=== PATIENT | male | born 1945 | race Caucasian/White ===

== ENCOUNTER 2019-02-04 09:34 | Emergency (ER) | payer BC, OTHER ==
[~2019-02-04] VITALS: Ht 172.7 cm; Wt 63.0 kg
[2019-02-04] MEDS ORDERED: albuterol 2.5 MG/3 ML nebule CONTNEB PRN (09:55)
[2019-02-04] MEDS ORDERED: methylPREDNISolone sod succ 125mg/2ml vial IV ONE (09:55)
[2019-02-04] MEDS ORDERED: magnesium 2GM in 50ml NS 50 ML IV ONE (09:55)
[2019-02-04] MEDS ORDERED: ipratropium 0.5 MG/2.5ML nebule IH ONE (09:55)
[2019-02-04 10:12] LABS: BASOPHILS # (AUTO) 0.1 X10'3 (0-0.2); BASOPHILS % (AUTO) 0.6 % (0-1); EOSINOPHILS # (AUTO) 0.2 X10'3 (0-0.9); EOSINOPHILS % (AUTO) 0.8 % (0-6); HEMATOCRIT 45.2 % (42.0-52.0); LYMPHOCYTES # (AUTO) 1.3 X10'3 (1.1-4.8); LYMPHOCYTES % (AUTO) 7.3 % (21-51); MEAN CORPUSCULAR HEMOGLOBIN 29.9 PG (27.0-31.0); MEAN CORPUSCULAR HGB CONC 33.2 g/dL (33.0-36.5); MONOCYTES # (AUTO) 1.7 X10'3 (0-0.9); MONOCYTES % (AUTO) 9.4 % (2-12); NEUTROPHILS # (AUTO) 14.8 X10'3 (1.8-7.7); NEUTROPHILS % (AUTO) 81.9 % (42-75); PLATELET COUNT 233 X10'3 (140-440); RED BLOOD COUNT 5.03 X10'6 (4.70-6.10); RED CELL DISTRIBUTION WIDTH 13.5 % (11.5-14.5)
[2019-02-04 10:42] LABS: ALANINE AMINOTRANSFERASE 25 U/L (12-78); ALBUMIN 3.6 G/DL (3.4-5.0); ALKALINE PHOSPHATASE 122 IU/L (46-116); ANION GAP 7 (8-16); ASPARTATE AMINO TRANSFERASE 18 U/L (10-37); BILIRUBIN,TOTAL 0.7 MG/DL (0.1-1.0); BLOOD UREA NITROGEN 21 MG/DL (7-18); BUN/CREATININE RATIO 18.9 (5.4-32.0); CHLORIDE 102 MMOL/L (99-107); CREATININE 1.11 MG/DL (0.60-1.10); GLUCOSE 130 MG/DL (70-104); POTASSIUM 4.4 MMOL/L (3.5-5.1); SODIUM 136 MMOL/L (135-145); TOTAL CARBON DIOXIDE 27.1 MMOL/L (24-32); TOTAL PROTEIN 7.1 G/DL (6.4-8.2); eGFR 65 ML/MIN
[2019-02-04 10:44] LABS: MAGNESIUM 1.8 MG/DL (1.5-2.4)
[2019-02-04] MEDS ORDERED: azithromycin 250mg tablet PO ONE (11:35)
[2019-02-04] MEDS ORDERED: PRED20TA PO (11:35)
[2019-02-04] MEDS ORDERED: AZIT-63 PO (11:35)
[2019-02-04 12:06] VITALS: BP 108/59
== END 2019-02-04 12:09 | disposition home or self-care (01) ==
LOC: ER 09:35
DX: J44.1 Chronic obstructive pulmonary disease with (acute) exacerbation (principal); Z79.899 Other long term (current) drug therapy
CPT/HCPCS: 36415; 71045; 80053; 83605; 83735; 83880; 84145; 84484; 85025; 85610; 87040; 93005; 94644; 94760; 96365; 96375; 99285; J2930; J3475

== ENCOUNTER 2019-03-12 09:41 | Emergency (ER) | payer MEDICARE, BC, OTHER ==
[~2019-03-12] VITALS: Ht 172.7 cm; Wt 61.8 kg
[2019-03-12] MEDS ORDERED: methylPREDNISolone sod succ 125mg/2ml vial IV ONE (09:55)
[2019-03-12] MEDS ORDERED: ipratropium/albuterol 3ml nebule NEB ONE ×2 (09:55→11:10)
[2019-03-12] MEDS ORDERED: normal saline 1000ML IV soln IVB ONE (09:55)
[2019-03-12 10:14] LABS: BASOPHILS # (AUTO) 0.1 X10'3 (0-0.2); BASOPHILS % (AUTO) 0.9 % (0-1); EOSINOPHILS # (AUTO) 0.4 X10'3 (0-0.9); EOSINOPHILS % (AUTO) 4.4 % (0-6); HEMATOCRIT 47.1 % (42.0-52.0); HEMOGLOBIN 15.5 g/dl (14.0-17.9); LYMPHOCYTES # (AUTO) 1.9 X10'3 (1.1-4.8); LYMPHOCYTES % (AUTO) 20.5 % (21-51); MEAN CORPUSCULAR HEMOGLOBIN 29.6 PG (27.0-31.0); MEAN CORPUSCULAR VOLUME 89.8 FL (78-98); MEAN PLATELET VOLUME 6.8 FL (7.4-10.4); MONOCYTES # (AUTO) 0.9 X10'3 (0-0.9); MONOCYTES % (AUTO) 9.8 % (2-12); NEUTROPHILS # (AUTO) 5.8 X10'3 (1.8-7.7); NEUTROPHILS % (AUTO) 64.4 % (42-75); PLATELET COUNT 270 X10'3 (140-440); RED BLOOD COUNT 5.25 X10'6 (4.70-6.10); RED CELL DISTRIBUTION WIDTH 13.7 % (11.5-14.5); WHITE BLOOD COUNT 9.1 X10'3 (4.5-11.0)
--- NOTE | 2019-03-12 10:28 | NUR ---
reported off to Mike MARTÍNEZ, taking over
[2019-03-12 10:33] LABS: PARTIAL THROMBOPLASTIN TIME 27 SECONDS (22-32)
[2019-03-12 10:44] LABS: ALANINE AMINOTRANSFERASE 30 U/L (12-78); ALBUMIN/GLOBULIN RATIO 1.2 (1.1-1.5); ALKALINE PHOSPHATASE 139 IU/L (46-116); ANION GAP 8 (8-16); ASPARTATE AMINO TRANSFERASE 22 U/L (10-37); BILIRUBIN,TOTAL 0.5 MG/DL (0.1-1.0); BLOOD UREA NITROGEN 15 MG/DL (7-18); BUN/CREATININE RATIO 15.2 (5.4-32.0); CHLORIDE 105 MMOL/L (99-107); CREATININE 0.99 MG/DL (0.60-1.10); GLUCOSE 109 MG/DL (70-104); SODIUM 140 MMOL/L (135-145); TOTAL CARBON DIOXIDE 26.7 MMOL/L (24-32); TOTAL PROTEIN 7.4 G/DL (6.4-8.2); eGFR 75 ML/MIN
[2019-03-12 10:47] LABS: POTASSIUM 4.4 MMOL/L (3.5-5.1)
[2019-03-12] MEDS ORDERED: PRED10TA PO (11:11)
[2019-03-12 11:31] VITALS: BP 142/92
== END 2019-03-12 11:47 | disposition home or self-care (01) ==
LOC: ER 09:41
DX: J44.1 Chronic obstructive pulmonary disease with (acute) exacerbation (principal); Z87.891 Personal history of nicotine dependence; Z79.899 Other long term (current) drug therapy
CPT/HCPCS: 36415; 71045; 80053; 84484; 85025; 85610; 85730; 93005; 94640; 94760; 96374; 99284; J2930; J7040

== ENCOUNTER 2019-04-13 10:14 | Inpatient (IN) | payer BC, MEDICARE, OTHER ==
[~2019-04-13] VITALS: Ht 172.7 cm; Wt 63.6 kg
[~2019-04-13 10:14] MED LIST: PRED10TA PO
[2019-04-13] MEDS ORDERED: methylPREDNISolone sod succ 125mg/2ml vial IV ONE (10:30)
[2019-04-13] MEDS ORDERED: albuterol 2.5 MG/3 ML nebule CONTNEB PRN (10:30)
[2019-04-13 11:31] LABS: BASOPHILS # (AUTO) 0.1 X10'3 (0-0.2); BASOPHILS % (AUTO) 0.8 % (0-1); EOSINOPHILS # (AUTO) 0.3 X10'3 (0-0.9); EOSINOPHILS % (AUTO) 3.6 % (0-6); HEMATOCRIT 45.5 % (42.0-52.0); HEMOGLOBIN 15.2 g/dl (14.0-17.9); LYMPHOCYTES # (AUTO) 1.4 X10'3 (1.1-4.8); LYMPHOCYTES % (AUTO) 15.5 % (21-51); MEAN CORPUSCULAR HGB CONC 33.3 g/dL (33.0-36.5); MEAN CORPUSCULAR VOLUME 90.1 FL (78-98); MEAN PLATELET VOLUME 6.9 FL (7.4-10.4); MONOCYTES % (AUTO) 10.8 % (2-12); NEUTROPHILS # (AUTO) 6.4 X10'3 (1.8-7.7); NEUTROPHILS % (AUTO) 69.3 % (42-75); PLATELET COUNT 295 X10'3 (140-440); RED BLOOD COUNT 5.05 X10'6 (4.70-6.10); WHITE BLOOD COUNT 9.2 X10'3 (4.5-11.0)
[2019-04-13] MEDS ORDERED: acetaminophen 325mg tablet PO ONE (11:35)
[2019-04-13 11:44] LABS: ALANINE AMINOTRANSFERASE 23 U/L (12-78); ALBUMIN 3.7 G/DL (3.4-5.0); ALBUMIN/GLOBULIN RATIO 1.2 (1.1-1.5); ALKALINE PHOSPHATASE 129 IU/L (46-116); ANION GAP 10 (8-16); ASPARTATE AMINO TRANSFERASE 14 U/L (10-37); BILIRUBIN,TOTAL 0.8 MG/DL (0.1-1.0); BLOOD UREA NITROGEN 22 MG/DL (7-18); CALCIUM 9.1 MG/DL (8.5-10.1); CHLORIDE 103 MMOL/L (99-107); CREATININE 1.05 MG/DL (0.60-1.10); GLUCOSE 116 MG/DL (70-104); POTASSIUM 4.5 MMOL/L (3.5-5.1); SODIUM 138 MMOL/L (135-145); TOTAL CARBON DIOXIDE 25.3 MMOL/L (24-32); TOTAL PROTEIN 6.8 G/DL (6.4-8.2); eGFR 70 ML/MIN
[2019-04-13 11:48] LABS: D-DIMER 1.94 MG/L FEU (0-0.50); PARTIAL THROMBOPLASTIN TIME 28 SECONDS (22-32)
--- NOTE | 2019-04-13 12:06 | NUR ---
pt is established pt of Dr. Alfred, has appt for further work up and sleep study on 04/15. pt reports has been using spouses nebulizers and O2. has been on her O2 continuous for approx 3 weeks. continuous neb given in ER with minimal relief. discussed breathing techniques pursed lip breathing and tripoding.
[2019-04-13] MEDS ORDERED: iohexol 350MG/ML 100ml bottle IV ONE (12:39)
[2019-04-13] MEDS ORDERED: LISI2.5T2 PO (13:14)
[2019-04-13] MEDS ORDERED: TIOT18CA3 IH (13:14)
[2019-04-13] MEDS ORDERED: ALBU18HF2 INH (13:14)
[2019-04-13] MEDS ORDERED: OMEP20CA11 PO (13:14)
[2019-04-13] MEDS ORDERED: TRAZ150T78 PO (13:14)
[2019-04-13] MEDS ORDERED: ATOR20TA66 PO (13:14)
[2019-04-13] MEDS ORDERED: BUDE10.2 INH (13:14)
[2019-04-13] MEDS ORDERED: HYDROcodone/acetaminophen 10/325mg tab PO PRN (14:00)
[2019-04-13] MEDS ORDERED: HYDROcodone/acetaminophen 5mg/325mg tablet PO PRN (14:00)
[2019-04-13] MEDS ORDERED: magnesium 4gm in 100ml NS 100 ML IV PRN (14:00)
[2019-04-13] MEDS: K and/or MAG REPLACEMENT MC SCH (14:00)
[2019-04-13] MEDS ORDERED: diphenhydrAMINE 25mg capsule PO PRN (14:00)
[2019-04-13] MEDS ORDERED: potassium CL 10mEq/100ml bag 100 ML IV PRN ×2 (14:00)
[2019-04-13] MEDS ORDERED: acetaminophen 325mg tablet PO PRN (14:00)
[2019-04-13] MEDS ORDERED: magnesium hydroxide 30ml (MOM) UD suspension PO PRN (14:00)
[2019-04-13] MEDS ORDERED: magnesium 2GM in 50ml NS 50 ML IV PRN (14:00)
[2019-04-13] MEDS ORDERED: methylPREDNISolone sod succ 125mg/2ml vial IV SCH (14:00)
[2019-04-13] MEDS ORDERED: ondansetron/PF 4mg/2ml inj IV PRN (14:00)
[2019-04-13] MEDS ORDERED: magnesium Cl slow-release 64mg tablet PO PRN (14:00)
[2019-04-13] MEDS ORDERED: potassium Cl 20 mEq SR tablet PO PRN ×2 (14:00)
[2019-04-13] MEDS ORDERED: morphine 2 MG/ML inj. syringe IV PRN ×2 (14:00)
[2019-04-13 14:46] LABS: HEMOGLOBIN A1C 5.8 % (4.5-6.2)
[2019-04-13] MEDS: normal saline 1000ml 1,000 ML IV SCH (14:48)
[2019-04-13] MEDS: levoFLOXACIN-Levaquin 750MG/D5 150 ML IV SCH (14:48)
[2019-04-13] MEDS: ipratropium/albuterol 3ml nebule NEB SCH ×3 (15:00→22:57)
[2019-04-13] MEDS ORDERED: diltiazem 5mg/ml 5ml inj. IV ONE (15:00)
--- NOTE | 2019-04-13 16:00 | NUR ---
Received report from Joy MARTÍNEZ. Able to ask question, and all questions answered. Patient will be admitted to room 3013A.
--- NOTE | 2019-04-13 16:15 | NUR ---
Patient admitted to room 3013A, brought up by REGULATORY SPECIALIST via sara and patient was able to scoot himself over to room bed. Patient oriented to room, and stable at this time. Tele monitor applied and 2 RN skin assessment done. Patient currently has no complaints
[2019-04-13] MEDS: methylPREDNISolone sod succ 125mg/2ml vial IV SCH ×2 (17:07→22:00)
[2019-04-13 17:28] LABS: CLARITY,URINE CLEAR (Clear); COLOR,URINE YELLOW (Yellow); GLUCOSE, URINE NEGATIVE (Neg); KETONES,URINE TRACE mg/dl (Neg); LEUKOCYTE ESTERASE ,URINE NEGATIVE (Neg); NITRITES, URINE NEGATIVE (Neg); OCCULT BLOOD,URINE TRACE-LYSED (Neg); PH,URINE 6.5 (4.8-8.0); PROTEIN,URINE NEGATIVE (Neg); UROBILINOGEN,URINE 0.2 E.U/dL (0.2-1.0)
[2019-04-13 17:33] LABS: UA COLLECTION TYPE CLN CATCH MIDSTREAM
[2019-04-13 17:34] LABS: BACTERIA,URINE NONE SEEN /HPF (Neg); RBC,URINE 0-2 /HPF (0-2); SQUAMOUS EPITHELIAL CELL,UR FEW /LPF (FEW); WBC,URINE 0-4 /HPF (0-4)
[2019-04-13 18:00] VITALS: BP 123/75
--- NOTE | 2019-04-13 18:46 | NUR ---
Problems reprioritized. Patient report given, questions answered & plan of care reviewed with Zoila MARTÍNEZ.
[2019-04-13] MEDS ORDERED: temazepam 15mg capsule PO PRN (21:00)
[2019-04-13] MEDS: acetaminophen 325mg tablet PO PRN (21:01)
[2019-04-13] MEDS: heparin, porcine 5000 units/ml vial SQ SCH (21:04)
[2019-04-13 23:00] VITALS: BP 125/78
[2019-04-14] MEDS ORDERED: albuterol 2.5 MG/3 ML nebule NEB PRN
[2019-04-14] MEDS: ipratropium/albuterol 3ml nebule NEB SCH ×6 (02:42→22:54)
[2019-04-14] MEDS ORDERED: ipratropium 0.5 MG/2.5ML nebule IH SCH (03:00)
[2019-04-14] MEDS: normal saline 1000ml 1,000 ML IV SCH ×2 (03:19→17:05)
[2019-04-14] MEDS: methylPREDNISolone sod succ 125mg/2ml vial IV SCH ×4 (04:00→21:17)
[2019-04-14 06:02] LABS: ALANINE AMINOTRANSFERASE 26 U/L (12-78); ALBUMIN 3.3 G/DL (3.4-5.0); ALBUMIN/GLOBULIN RATIO 1.1 (1.1-1.5); ALKALINE PHOSPHATASE 108 IU/L (46-116); ANION GAP 8 (8-16); ASPARTATE AMINO TRANSFERASE 14 U/L (10-37); BILIRUBIN,TOTAL 0.4 MG/DL (0.1-1.0); BLOOD UREA NITROGEN 24 MG/DL (7-18); CALCIUM 8.6 MG/DL (8.5-10.1); CHLORIDE 104 MMOL/L (99-107); CHOL/HDL RATIO 2.5 (0.00-4.99); CHOLESTEROL 144 MG/DL (0-200); CREATININE 1.09 MG/DL (0.60-1.10); GLUCOSE 163 MG/DL (70-104); HDL CHOLESTEROL 58 MG/DL (35-60); LDL CHOLESTEROL 79 MG/DL (50-100); MAGNESIUM 1.9 MG/DL (1.5-2.4); PHOSPHORUS 3.2 MG/DL (2.3-4.5); SODIUM 137 MMOL/L (135-145); TOTAL CARBON DIOXIDE 25.1 MMOL/L (24-32); TOTAL PROTEIN 6.2 G/DL (6.4-8.2); TRIGLYCERIDES 36 MG/DL (20-135); eGFR 67 ML/MIN
[2019-04-14 06:09] LABS: BASOPHILS % (AUTO) 0.2 % (0-1); EOSINOPHILS % (AUTO) 0 % (0-6); HEMATOCRIT 41.4 % (42.0-52.0); HEMOGLOBIN 13.9 g/dl (14.0-17.9); LYMPHOCYTES # (AUTO) 0.5 X10'3 (1.1-4.8); LYMPHOCYTES % (AUTO) 4.6 % (21-51); MEAN CORPUSCULAR HEMOGLOBIN 30.2 PG (27.0-31.0); MEAN CORPUSCULAR HGB CONC 33.7 g/dL (33.0-36.5); MEAN CORPUSCULAR VOLUME 89.8 FL (78-98); MEAN PLATELET VOLUME 7.2 FL (7.4-10.4); MONOCYTES # (AUTO) 0.2 X10'3 (0-0.9); MONOCYTES % (AUTO) 2.1 % (2-12); NEUTROPHILS # (AUTO) 10.1 X10'3 (1.8-7.7); NEUTROPHILS % (AUTO) 93.1 % (42-75); PLATELET COUNT 260 X10'3 (140-440); RED BLOOD COUNT 4.61 X10'6 (4.70-6.10); RED CELL DISTRIBUTION WIDTH 13.8 % (11.5-14.5); WHITE BLOOD COUNT 10.8 X10'3 (4.5-11.0)
--- NOTE | 2019-04-14 06:17 | NUR ---
Problems reprioritized. Patient report given, questions answered & plan of care reviewed with Perfecto MARTÍNEZ.
--- NOTE | 2019-04-14 06:26 | NUR ---
Patient in room PCU 3013. I have received report from [facility] and had the opportunity to ask questions and assume patient care.
[2019-04-14 07:03] VITALS: BP 129/96
[2019-04-14] MEDS: heparin, porcine 5000 units/ml vial SQ SCH ×2 (07:57→21:17)
[2019-04-14] MEDS: lisinopril 2.5mg tablet PO SCH (07:58)
[2019-04-14] MEDS: levoFLOXACIN-Levaquin 750MG/D5 150 ML IV SCH (07:58)
[2019-04-14] MEDS: pantoprazole 40mg Tablet.DR PO SCH (07:58)
[2019-04-14] MEDS: K and/or MAG REPLACEMENT MC SCH (08:00)
[2019-04-14] MEDS: budesonide 0.5mg/2ml UD nebule IH SCH ×2 (09:00→22:54)
[2019-04-14] MEDS: acetaminophen 325mg tablet PO PRN ×2 (09:22→21:15)
[2019-04-14] MEDS: diltiazem CD 120mg capsule (once-daily) PO SCH (09:46)
[2019-04-14 11:00] VITALS: BP 137/88
[2019-04-14 15:00] VITALS: BP 137/74
[2019-04-14] MEDS: mag hydrox/Alum hydrox/simeth 30ml oral suspension PO PRN ×2 (17:51→21:52)
--- NOTE | 2019-04-14 17:58 | NUR ---
I have reviewed and agree with all interventions, assessments performed and documented by Alida MARTÍNEZ.
[2019-04-14 18:00] VITALS: BP 121/82
--- NOTE | 2019-04-14 18:28 | NUR ---
Problems reprioritized. Patient report given, questions answered & plan of care reviewed with Zoila MARTÍNEZ.
--- NOTE | 2019-04-14 18:34 | NUR ---
Patient in room PCU 3013. I have received report from Rima MARTÍNEZ and had the opportunity to ask questions and assume patient care. Addendum: 04/14/19 at 1834 by Zoila Mckeon RN Cami MARTÍNEZ
[2019-04-14] MEDS: atorvastatin 20mg tablet PO SCH (21:15)
[2019-04-14] MEDS: traZODone 150mg tablet PO SCH (21:16)
[2019-04-14 23:00] VITALS: BP 128/69
--- NOTE | 2019-04-14 23:47 | NUR ---
pt c/o heartburn, mallox was given
[2019-04-15] VITALS (8 sets, daily range): BP systolic 116–150; BP diastolic 72–97
[2019-04-15] MEDS: ipratropium/albuterol 3ml nebule NEB SCH ×6 (02:45→23:29)
[2019-04-15] MEDS: methylPREDNISolone sod succ 125mg/2ml vial IV SCH ×4 (03:25→21:24)
[2019-04-15 04:46] LABS: BASOPHILS % (AUTO) 0.1 % (0-1); EOSINOPHILS % (AUTO) 0 % (0-6); HEMATOCRIT 38.7 % (42.0-52.0); HEMOGLOBIN 13.1 g/dl (14.0-17.9); LYMPHOCYTES # (AUTO) 0.4 X10'3 (1.1-4.8); LYMPHOCYTES % (AUTO) 2.4 % (21-51); MEAN CORPUSCULAR HGB CONC 33.8 g/dL (33.0-36.5); MEAN CORPUSCULAR VOLUME 88.8 FL (78-98); MEAN PLATELET VOLUME 7.1 FL (7.4-10.4); MONOCYTES # (AUTO) 0.7 X10'3 (0-0.9); NEUTROPHILS # (AUTO) 16.4 X10'3 (1.8-7.7); NEUTROPHILS % (AUTO) 93.5 % (42-75); PLATELET COUNT 259 X10'3 (140-440); RED BLOOD COUNT 4.36 X10'6 (4.70-6.10); RED CELL DISTRIBUTION WIDTH 13.7 % (11.5-14.5); WHITE BLOOD COUNT 17.6 X10'3 (4.5-11.0)
[2019-04-15 04:57] LABS: ALANINE AMINOTRANSFERASE 24 U/L (12-78); ALBUMIN 3.1 G/DL (3.4-5.0); ALBUMIN/GLOBULIN RATIO 1.2 (1.1-1.5); ALKALINE PHOSPHATASE 91 IU/L (46-116); ANION GAP 4 (8-16); ASPARTATE AMINO TRANSFERASE 12 U/L (10-37); BILIRUBIN,TOTAL 0.3 MG/DL (0.1-1.0); BLOOD UREA NITROGEN 25 MG/DL (7-18); BUN/CREATININE RATIO 25.3 (5.4-32.0); CALCIUM 8.3 MG/DL (8.5-10.1); CHLORIDE 108 MMOL/L (99-107); CREATININE 0.99 MG/DL (0.60-1.10); GLUCOSE 184 MG/DL (70-104); MAGNESIUM 2.1 MG/DL (1.5-2.4); POTASSIUM 4.1 MMOL/L (3.5-5.1); SODIUM 140 MMOL/L (135-145); TOTAL CARBON DIOXIDE 28.2 MMOL/L (24-32); TOTAL PROTEIN 5.6 G/DL (6.4-8.2); eGFR 75 ML/MIN
--- NOTE | 2019-04-15 06:26 | NUR ---
Patient in room PCU 3013. I have received report from Zoila MARTÍNEZ and had the opportunity to ask questions and assume patient care.
--- NOTE | 2019-04-15 06:26 | NUR ---
Problems reprioritized. Patient report given, questions answered & plan of care reviewed with BERENICE MARTÍNEZ.
[2019-04-15] MEDS: levoFLOXACIN-Levaquin 750MG/D5 150 ML IV SCH (08:28)
[2019-04-15] MEDS: pantoprazole 40mg Tablet.DR PO SCH (08:30)
[2019-04-15] MEDS: lisinopril 2.5mg tablet PO SCH (08:31)
[2019-04-15] MEDS: heparin, porcine 5000 units/ml vial SQ SCH ×2 (08:32→21:23)
[2019-04-15] MEDS: diltiazem CD 120mg capsule (once-daily) PO SCH (08:33)
[2019-04-15] MEDS: normal saline 1000ml 1,000 ML IV SCH (08:33)
[2019-04-15] MEDS: K and/or MAG REPLACEMENT MC SCH (09:46)
[2019-04-15] MEDS: budesonide 0.5mg/2ml UD nebule IH SCH ×2 (10:50→19:17)
--- NOTE | 2019-04-15 15:35 | NUR ---
PAGER ID: [phone] MESSAGE: PtSpencer Castillo [id number] May we have orders for a stool softner? Susan MARTÍNEZstatistician [phone]
[2019-04-15] MEDS ORDERED: morphine 2 MG/ML inj. syringe IV PRN (18:05)
[2019-04-15] MEDS ORDERED: LORazepam 2 mg/ml vial IM ONE (18:05)
[2019-04-15] MEDS ORDERED: nitroGLYCERIN 0.4mg SUBLingual tab SL PRN (18:05)
[2019-04-15] MEDS ORDERED: LORazepam 2 mg/ml vial IV PRN (18:05)
--- NOTE | 2019-04-15 18:15 | NUR ---
Chest Pain 1755 Severe Chest Pain S/S. EKG done O2 Support and Rapid response called. Resolved partially in 4 approx 4 min. Per Pt. first time with this level of discomfort, Clutching Chest with 10/10 sharp chest pain. Lungs are diminished. No tachycardia, 160 SBP, resolved to SBP of 120 with pain relief. Jarred KINSGLEY ordered Medications, careful nursing surveillance. Jarred KINGSLEY to bedside to physically assess.
[2019-04-15] MEDS: acetaminophen 325mg tablet PO PRN (19:16)
[2019-04-15] MEDS: traZODone 150mg tablet PO SCH (21:22)
[2019-04-15] MEDS: atorvastatin 20mg tablet PO SCH (21:22)
[2019-04-16] VITALS (14 sets, daily range): BP systolic 110–183; BP diastolic 66–98
[2019-04-16] MEDS: normal saline 1000ml 1,000 ML IV SCH (00:48)
[2019-04-16] MEDS: ipratropium/albuterol 3ml nebule NEB SCH ×6 (03:26→22:53)
[2019-04-16] MEDS: methylPREDNISolone sod succ 125mg/2ml vial IV SCH ×2 (04:18→11:47)
[2019-04-16 04:53] LABS: BASOPHILS % (AUTO) 0 % (0-1); EOSINOPHILS % (AUTO) 0 % (0-6); HEMATOCRIT 37.8 % (42.0-52.0); HEMOGLOBIN 12.7 g/dl (14.0-17.9); LYMPHOCYTES # (AUTO) 0.3 X10'3 (1.1-4.8); MEAN CORPUSCULAR HEMOGLOBIN 30.1 PG (27.0-31.0); MEAN CORPUSCULAR HGB CONC 33.5 g/dL (33.0-36.5); MEAN CORPUSCULAR VOLUME 89.8 FL (78-98); MEAN PLATELET VOLUME 6.8 FL (7.4-10.4); MONOCYTES # (AUTO) 0.8 X10'3 (0-0.9); MONOCYTES % (AUTO) 4.9 % (2-12); NEUTROPHILS # (AUTO) 15.7 X10'3 (1.8-7.7); NEUTROPHILS % (AUTO) 93.1 % (42-75); PLATELET COUNT 236 X10'3 (140-440); RED BLOOD COUNT 4.21 X10'6 (4.70-6.10); RED CELL DISTRIBUTION WIDTH 14.3 % (11.5-14.5); WHITE BLOOD COUNT 16.9 X10'3 (4.5-11.0)
[2019-04-16 05:31] LABS: ALANINE AMINOTRANSFERASE 26 U/L (12-78); ALBUMIN 2.9 G/DL (3.4-5.0); ALBUMIN/GLOBULIN RATIO 1.2 (1.1-1.5); ALKALINE PHOSPHATASE 87 IU/L (46-116); ANION GAP 6 (8-16); ASPARTATE AMINO TRANSFERASE 16 U/L (10-37); BILIRUBIN,TOTAL 0.3 MG/DL (0.1-1.0); BLOOD UREA NITROGEN 26 MG/DL (7-18); BUN/CREATININE RATIO 27.4 (5.4-32.0); CALCIUM 8.1 MG/DL (8.5-10.1); CHLORIDE 109 MMOL/L (99-107); CREATININE 0.95 MG/DL (0.60-1.10); GLUCOSE 161 MG/DL (70-104); MAGNESIUM 2.1 MG/DL (1.5-2.4); PHOSPHORUS 2.8 MG/DL (2.3-4.5); POTASSIUM 4.1 MMOL/L (3.5-5.1); SODIUM 142 MMOL/L (135-145); TOTAL CARBON DIOXIDE 27.5 MMOL/L (24-32); TOTAL PROTEIN 5.3 G/DL (6.4-8.2); eGFR 78 ML/MIN
[2019-04-16] MEDS: K and/or MAG REPLACEMENT MC SCH (06:55)
[2019-04-16] MEDS: budesonide 0.5mg/2ml UD nebule IH SCH ×2 (07:20→19:07)
[2019-04-16] MEDS: pantoprazole 40mg Tablet.DR PO SCH (08:00)
[2019-04-16] MEDS: diltiazem CD 120mg capsule (once-daily) PO SCH (09:33)
[2019-04-16] MEDS: lisinopril 2.5mg tablet PO SCH (09:34)
[2019-04-16] MEDS: heparin, porcine 5000 units/ml vial SQ SCH ×2 (09:35→20:39)
[2019-04-16] MEDS: levoFLOXACIN 750MG TABLET PO SCH (11:47)
[2019-04-16] MEDS: acetaminophen 325mg tablet PO PRN (16:23)
--- NOTE | 2019-04-16 17:55 | NUR ---
Oxygen walk: Fail to walk O2 on 2L with exertion 85%. Pt. is not able to walk and test.
--- NOTE | 2019-04-16 18:46 | NUR ---
Problems reprioritized. Patient report given, questions answered & plan of care reviewed with Toni MARTÍNEZ.
--- NOTE | 2019-04-16 18:47 | NUR ---
Patient in room PCU 3013. I have received report from MAURICIO Davis and had the opportunity to ask questions and assume patient care.
--- NOTE | 2019-04-16 19:52 | NUR ---
Pt had 40 second run of SVT with HR of 200. O2 went down to 86. MD notified, no actions at this time.
[2019-04-16] MEDS ORDERED: diltiazem 5mg/ml 5ml inj. IV ONE (20:05)
--- NOTE | 2019-04-16 20:05 | NUR ---
Patient had another 30 second run of SVT, HR 250's, called, came up to assess pt. Ordered a cardizem drip.
[2019-04-16] MEDS: diltiazem-NS 100mg/100ml 100 ML IV SCH (20:27)
--- NOTE | 2019-04-16 20:35 | NUR ---
Problems reprioritized. Patient report given, questions answered & plan of care reviewed with MAURICIO Tobias.
[2019-04-16] MEDS: lactobacillus rhamnosus 10,000 MMU CELLS/CAPSULE PO SCH (20:39)
[2019-04-16] MEDS: traZODone 150mg tablet PO SCH (21:13)
[2019-04-16] MEDS: atorvastatin 20mg tablet PO SCH (21:13)
[2019-04-17] VITALS (8 sets, daily range): BP systolic 124–153; BP diastolic 66–97
[2019-04-17] MEDS: ipratropium/albuterol 3ml nebule NEB SCH ×2 (02:54→07:00)
[2019-04-17 05:25] LABS: BASOPHILS % (AUTO) 0 % (0-1); EOSINOPHILS % (AUTO) 0 % (0-6); HEMATOCRIT 37.9 % (42.0-52.0); HEMOGLOBIN 12.8 g/dl (14.0-17.9); LYMPHOCYTES # (AUTO) 0.4 X10'3 (1.1-4.8); LYMPHOCYTES % (AUTO) 2.4 % (21-51); MEAN CORPUSCULAR HEMOGLOBIN 30.1 PG (27.0-31.0); MEAN CORPUSCULAR HGB CONC 33.9 g/dL (33.0-36.5); MEAN CORPUSCULAR VOLUME 88.9 FL (78-98); MEAN PLATELET VOLUME 6.8 FL (7.4-10.4); MONOCYTES # (AUTO) 1.1 X10'3 (0-0.9); MONOCYTES % (AUTO) 7.5 % (2-12); NEUTROPHILS # (AUTO) 13.7 X10'3 (1.8-7.7); NEUTROPHILS % (AUTO) 90.1 % (42-75); PLATELET COUNT 218 X10'3 (140-440); RED BLOOD COUNT 4.26 X10'6 (4.70-6.10); RED CELL DISTRIBUTION WIDTH 13.9 % (11.5-14.5); WHITE BLOOD COUNT 15.2 X10'3 (4.5-11.0)
[2019-04-17 05:35] LABS: ALANINE AMINOTRANSFERASE 36 U/L (12-78); ALBUMIN 2.9 G/DL (3.4-5.0); ALBUMIN/GLOBULIN RATIO 1.2 (1.1-1.5); ALKALINE PHOSPHATASE 84 IU/L (46-116); ANION GAP 4 (8-16); ASPARTATE AMINO TRANSFERASE 14 U/L (10-37); BILIRUBIN,TOTAL 0.4 MG/DL (0.1-1.0); BLOOD UREA NITROGEN 29 MG/DL (7-18); BUN/CREATININE RATIO 31.2 (5.4-32.0); CALCIUM 8.2 MG/DL (8.5-10.1); CHLORIDE 108 MMOL/L (99-107); CREATININE 0.93 MG/DL (0.60-1.10); GLUCOSE 146 MG/DL (70-104); MAGNESIUM 2.1 MG/DL (1.5-2.4); PHOSPHORUS 3.2 MG/DL (2.3-4.5); POTASSIUM 3.9 MMOL/L (3.5-5.1); SODIUM 141 MMOL/L (135-145); TOTAL CARBON DIOXIDE 29.3 MMOL/L (24-32); TOTAL PROTEIN 5.3 G/DL (6.4-8.2); eGFR 80 ML/MIN
[2019-04-17] MEDS: budesonide 0.5mg/2ml UD nebule IH SCH (07:17)
[2019-04-17] MEDS: K and/or MAG REPLACEMENT MC SCH (07:42)
[2019-04-17] MEDS: heparin, porcine 5000 units/ml vial SQ SCH (07:43)
[2019-04-17] MEDS: pantoprazole 40mg Tablet.DR PO SCH (07:44)
[2019-04-17] MEDS: lisinopril 2.5mg tablet PO SCH (07:44)
[2019-04-17] MEDS: lactobacillus rhamnosus 10,000 MMU CELLS/CAPSULE PO SCH (07:44)
[2019-04-17] MEDS: diltiazem CD 120mg capsule (once-daily) PO SCH (07:56)
[2019-04-17] MEDS ORDERED: predniSONE 20 mg tablet PO SCH (08:00)
[2019-04-17] MEDS: ipratropium 0.5 MG/2.5ML nebule NEB SCH ×3 (08:02→14:41)
--- NOTE | 2019-04-17 08:04 | NUR ---
Received order from Dr Andrews to give PO cardizem now and stop cardizem infusion 1 hour after as well as stop albuterol txs due to episodes of Vtach,change to ipatroptium only. In pt's room, pt has O2@ removed, visibly short of breath, O2 saturation decreased to 84%. Placed O2 via NC back on patient and saturation returned to 92-94% on 3.5L.
[2019-04-17] MEDS: levoFLOXACIN 750MG TABLET PO SCH (11:16)
--- NOTE | 2019-04-17 11:29 | NUR ---
O2 Sat at rest on room air:_88__% If below 89%: Recovery O2 Sat at rest on _2__LPM:___94%:___% via nasal cannula (mask/nasal cannula, etc..) No further documentation is necessary. If O2 Sat did not drop below 89% on room air,ambulate patient on room air. O2 Sat while ambulating on room air:___% Recovery O2 Sat while ambulating on ___LPM:___% No further documentation is necessary. If patient does not drop below 89% while ambulating, he/she does not qualify for home O2.
--- NOTE | 2019-04-17 11:44 | NUR ---
patient walked 200 ft with PT and HR went to 108 at the highest, discharge orders received just waiting on home 02 to be delivered
--- NOTE | 2019-04-17 13:32 | NUR ---
PAGER ID: [phone] MESSAGE: need the medications addressed in order to discharge Evgeny Castillo in , walked with PT and HR in good control highest was 108
[2019-04-17] MEDS ORDERED: CARCD120C PO (13:43)
[2019-04-17] MEDS ORDERED: LEVO750T46 PO (13:43)
[2019-04-17] MEDS ORDERED: PRED10TA23 PO (13:43)
--- NOTE | 2019-04-17 13:54 | NUR ---
updated juliana on patient status and that patient walked with PT 200 feet and HR went as high as 108, patient was asymptomatic. Waiting for Juliana to finish discharge orders addressing medications and for home o2 to be delivered before patient can go home
--- NOTE | 2019-04-17 14:29 | NUR ---
Pt prescriptions called in to [facility] pharmacy in [place],
[2019-04-17] MEDS: diltiazem-NS 100mg/100ml 100 ML IV SCH (15:40)
== END 2019-04-17 17:30 | disposition home or self-care (01) | DRG 189 ==
LOC: ER 10:14 → PCU 3S 16:11
PROVIDERS: ADMIT Family Medicine; ATTEND Hospitalist
PROC: B32T1ZZ Computerized Tomography (CT Scan) of Left Pulmonary Artery using Low Osmolar Contrast (ICD-10-PCS; principal; 2019-04-13)
PROC: B3201ZZ Computerized Tomography (CT Scan) of Thoracic Aorta using Low Osmolar Contrast (ICD-10-PCS; 2019-04-13)
PROC: B32S1ZZ Computerized Tomography (CT Scan) of Right Pulmonary Artery using Low Osmolar Contrast (ICD-10-PCS; 2019-04-13)
DX: J96.00 Acute respiratory failure, unspecified whether with hypoxia or hypercapnia (principal); J44.1 Chronic obstructive pulmonary disease with (acute) exacerbation; J44.0 Chronic obstructive pulmonary disease with (acute) lower respiratory infection; E78.00 Pure hypercholesterolemia, unspecified; E78.5 Hyperlipidemia, unspecified; F32.9 Major depressive disorder, single episode, unspecified; F41.9 Anxiety disorder, unspecified; I10 Essential (primary) hypertension; J20.9 Acute bronchitis, unspecified; K21.9 Gastro-esophageal reflux disease without esophagitis; Z79.899 Other long term (current) drug therapy; Z82.3 Family history of stroke; Z87.891 Personal history of nicotine dependence; F41.0 Panic disorder [episodic paroxysmal anxiety]; Z99.81 Dependence on supplemental oxygen
CPT/HCPCS: 36415; 71045; 71275; 80053; 80061; 81001; 83036; 83605; 83735; 83880; 84100; 84484; 85025; 85379; 85610; 85730; 87040; 87070; 87081; 93005; 93306; 94640; 94667; 94668; 94760; 96374; 96375; 97116; 97161; 97530; 99285; G0378; J1644; J1956; J2060; J2930; J3490; J7030; J7512; J7626; Q9967

== ENCOUNTER 2019-05-24 09:02 | Inpatient (IN) | payer BC, MEDICARE, OTHER ==
[~2019-05-24] VITALS: Ht 172.7 cm; Wt 63.6 kg
[2019-05-24] VITALS (11 sets, daily range): BP systolic 101–125; BP diastolic 62–76
[~2019-05-24 09:02] MED LIST changes: +ALBU18HF2 INH; +ATOR20TA66 PO; +BUDE10.2 INH; +CARCD120C PO; +LEVO750T46 PO; +LISI2.5T2 PO; +OMEP20CA11 PO; -PRED10TA PO; +TIOT18CA3 IH; +TRAZ150T78 PO
[2019-05-24] MEDS ORDERED: adenosine 3mg/ml 2ml vial IV ONE (09:15)
[2019-05-24] MEDS ORDERED: normal saline 1000ML IV soln IVB ONE (09:15)
--- NOTE | 2019-05-24 09:18 | NUR ---
PER DR COKER HOLD ADENOSINE: ALEXIA IS IN A SINUS TACH
[2019-05-24] MEDS ORDERED: metoprolol tartrate 1mg/ml inj IV ONE (09:35)
[2019-05-24 09:38] LABS: BASOPHILS # (AUTO) 0.1 X10'3 (0-0.2); BASOPHILS % (AUTO) 0.7 % (0-1); EOSINOPHILS # (AUTO) 0.1 X10'3 (0-0.9); EOSINOPHILS % (AUTO) 0.4 % (0-6); HEMATOCRIT 45.2 % (42.0-52.0); HEMOGLOBIN 14.9 g/dl (14.0-17.9); LYMPHOCYTES # (AUTO) 3.1 X10'3 (1.1-4.8); LYMPHOCYTES % (AUTO) 16.9 % (21-51); MEAN CORPUSCULAR HGB CONC 32.9 g/dL (33.0-36.5); MEAN CORPUSCULAR VOLUME 88.2 FL (78-98); MEAN PLATELET VOLUME 6.6 FL (7.4-10.4); MONOCYTES % (AUTO) 10.8 % (2-12); NEUTROPHILS # (AUTO) 13.2 X10'3 (1.8-7.7); NEUTROPHILS % (AUTO) 71.2 % (42-75); PLATELET COUNT 334 X10'3 (140-440); RED BLOOD COUNT 5.13 X10'6 (4.70-6.10); RED CELL DISTRIBUTION WIDTH 14.8 % (11.5-14.5); WHITE BLOOD COUNT 18.5 X10'3 (4.5-11.0)
--- NOTE | 2019-05-24 09:49 | NUR ---
[facility]IENT [facility] AL[facility]
[2019-05-24 09:52] LABS: ALANINE AMINOTRANSFERASE 46 U/L (12-78); ALBUMIN 3.3 G/DL (3.4-5.0); ALBUMIN/GLOBULIN RATIO 0.9 (1.1-1.5); ALKALINE PHOSPHATASE 153 IU/L (46-116); ASPARTATE AMINO TRANSFERASE 36 U/L (10-37); BILIRUBIN,TOTAL 0.4 MG/DL (0.1-1.0); BLOOD UREA NITROGEN 26 MG/DL (7-18); BUN/CREATININE RATIO 20.8 (5.4-32.0); CALCIUM 9.7 MG/DL (8.5-10.1); CHLORIDE 104 MMOL/L (99-107); CREATININE 1.25 MG/DL (0.60-1.10); GLUCOSE 130 MG/DL (70-104); POTASSIUM 4.3 MMOL/L (3.5-5.1); TOTAL CARBON DIOXIDE 24.3 MMOL/L (24-32); TOTAL PROTEIN 6.9 G/DL (6.4-8.2); eGFR 57 ML/MIN
[2019-05-24] MEDS ORDERED: normal saline 1000ml 1,000 ML IV ONE (09:55)
[2019-05-24] MEDS ORDERED: LORazepam 2 mg/ml vial IV ONE (09:55)
[2019-05-24] MEDS ORDERED: PRED20TA PO (09:57)
--- NOTE | 2019-05-24 09:57 | NUR ---
PREDNISONE 40 MGSTARTED ON THE
[2019-05-24 10:01] LABS: ANION GAP 12 (8-16); MAGNESIUM 1.8 MG/DL (1.5-2.4); SODIUM 140 MMOL/L (135-145)
--- NOTE | 2019-05-24 10:02 | NUR ---
PATIENT TOOK 120 MG DILTIAZEM FOR 4 DAYS AFTER HIS LAST DISCHARGE
[2019-05-24] MEDS ORDERED: heparin 10,000 units/1 ML INJ IV PRN (10:05)
[2019-05-24] MEDS ORDERED: heparin 10,000 units/1 ML INJ IV ONE ×2 (10:05→10:10)
[2019-05-24] MEDS ORDERED: heparin 25,000 UNIT/250ml bag 250 ML IV SCH (10:05)
[2019-05-24] MEDS ORDERED: aspirin 325mg tablet PO ONE (10:10)
[2019-05-24 10:31] LABS: PARTIAL THROMBOPLASTIN TIME 25 SECONDS (22-32)
--- NOTE | 2019-05-24 10:47 | NUR ---
DISCUSSED WITH DR COKER: PATIENT TOOK 162 BABY ASA THIS AM; ALSO: OK TO GIVE LOPRESSOR
[2019-05-24] MEDS ORDERED: ondansetron/PF 4mg/2ml inj IV PRN ×2 (10:50→13:05)
[2019-05-24] MEDS ORDERED: mag hydrox/Alum hydrox/simeth 30ml oral suspension PO PRN ×2 (10:50→13:05)
[2019-05-24] MEDS ORDERED: aspirin 81mg tab.chew PO ONE ×2 (10:50→13:05)
[2019-05-24] MEDS ORDERED: magnesium hydroxide 30ml (MOM) UD suspension PO PRN ×2 (10:50→13:05)
[2019-05-24] MEDS ORDERED: acetaminophen 325mg tablet PO PRN ×3 (10:50→13:05)
--- NOTE | 2019-05-24 10:52 | NUR ---
PATIENT ATTEMPTING TO URINATE
[2019-05-24 11:24] LABS: CLARITY,URINE CLEAR (Clear); COLOR,URINE YELLOW (Yellow); GLUCOSE, URINE NEGATIVE (Neg); KETONES,URINE NEGATIVE (Neg); LEUKOCYTE ESTERASE ,URINE NEGATIVE (Neg); NITRITES, URINE NEGATIVE (Neg); OCCULT BLOOD,URINE MODERATE (Neg); PROTEIN,URINE TRACE mg/dl (Neg); UROBILINOGEN,URINE 0.2 E.U/dL (0.2-1.0)
[2019-05-24] MEDS ORDERED: fentaNYL/PF 50MCG/1 ML 2ML syringe IV ONE (11:25)
[2019-05-24 11:33] LABS: UA COLLECTION TYPE URINAL
[2019-05-24 11:34] LABS: BACTERIA,URINE FEW /HPF (Neg); MUCUS STRANDS FEW /LPF (Neg); SQUAMOUS EPITHELIAL CELL,UR FEW /LPF (FEW)
--- NOTE | 2019-05-24 11:41 | NUR ---
phone report to Darlene MARTÍNEZ
--- NOTE | 2019-05-24 11:42 | NUR ---
recieved phone report from lula orozco
--- NOTE | 2019-05-24 11:47 | NUR ---
JOSE RAUL BACK [facility] [phone]
--- NOTE | 2019-05-24 12:05 | NUR ---
Patient arrived on unit and was orientated to room. HR: 93. chest pain 3/10 BP: 110/76. call light given. No complaints at this time.
--- NOTE | 2019-05-24 12:16 | NUR ---
PAGER ID: [phone] MESSAGE: [id number] andie Castillo Which provider is taking on this patient? Cami [phone]
--- NOTE | 2019-05-24 12:30 | NUR ---
PAGER ID: [phone] MESSAGE: [id number] Evgeny Castillo. fyi patient is having increase chest pain since arriving. 04/11. bryant MARTÍNEZ 1735
[2019-05-24] MEDS ORDERED: albuterol 2.5 MG/3 ML nebule NEB PRN (13:00)
[2019-05-24] MEDS: normal saline 1000ml 1,000 ML IV SCH (13:01)
[2019-05-24] MEDS: K and/or MAG REPLACEMENT MC SCH (13:05)
[2019-05-24] MEDS ORDERED: diphenhydrAMINE 25mg capsule PO PRN (13:05)
[2019-05-24] MEDS ORDERED: bisacodyl 10mg suppository rectal RC PRN (13:05)
[2019-05-24] MEDS ORDERED: potassium CL 10mEq/100ml bag 100 ML IV PRN ×2 (13:05)
[2019-05-24] MEDS ORDERED: potassium Cl 20 mEq SR tablet PO PRN ×2 (13:05)
[2019-05-24] MEDS ORDERED: magnesium Cl slow-release 64mg tablet PO PRN (13:05)
[2019-05-24] MEDS ORDERED: nitroGLYCERIN-Tridil 50MG/D5W 250 ML IV SCH (13:05)
[2019-05-24] MEDS ORDERED: HYDROcodone/acetaminophen 5mg/325mg tablet PO PRN (13:05)
[2019-05-24] MEDS ORDERED: morphine 2 MG/ML inj. syringe IV PRN ×2 (13:05)
[2019-05-24] MEDS ORDERED: acetaminophen 650mg rectal suppository RC PRN (13:05)
[2019-05-24] MEDS ORDERED: magnesium 4gm in 100ml NS 100 ML IV PRN (13:05)
[2019-05-24] MEDS ORDERED: magnesium 2GM in 50ml NS 50 ML IV PRN (13:05)
[2019-05-24] MEDS ORDERED: HYDROcodone/acetaminophen 10/325mg tab PO PRN (13:05)
[2019-05-24] MEDS ORDERED: tirofiban 5mg in NS 100mL 100 ML IV SCH (13:25)
[2019-05-24] MEDS: atorvastatin 20mg tablet PO SCH (14:00)
[2019-05-24] MEDS ORDERED: metoprolol succinate 25mg (24-HOUR) SR. Tablet PO SCH (14:30)
[2019-05-24] MEDS ORDERED: LIDOcaine/PRILOcaine 5gm cream TP ONE (14:35)
[2019-05-24] MEDS ORDERED: tirofiban 12.5mg in NS 250mL 250 ML IV SCH (14:35)
[2019-05-24] MEDS ORDERED: iohexol 350 MG/ML 50ML vial IV ONE (14:43)
[2019-05-24] MEDS ORDERED: LIDOcaine 1% (10mg/ml)w/preservative injection 20ml MDV ONE (14:43)
[2019-05-24] MEDS ORDERED: nitroGLYCERIN-Tridil 50MG/D5W 250 ML IV ONE (14:43)
[2019-05-24] MEDS ORDERED: verapamil 2.5 mg/ml inj IV ONE (14:43)
[2019-05-24] MEDS ORDERED: fentaNYL/PF 50MCG/1 ML 2ML syringe ONE (14:43)
[2019-05-24] MEDS ORDERED: iohexol 350MG/ML 100ml bottle IV ONE (14:43)
[2019-05-24] MEDS ORDERED: heparin 1,000unit/ml 10ml vial 10 ML ONE (14:43)
[2019-05-24] MEDS ORDERED: midazolam 2 mg/2 ml injection ONE (14:43)
[2019-05-24] MEDS ORDERED: albuterol 2.5 MG/3 ML nebule NEB SCH (15:00)
[2019-05-24] MEDS ORDERED: ipratropium 0.5 MG/2.5ML nebule NEB SCH (15:00)
--- NOTE | 2019-05-24 16:07 | NUR ---
PAGER ID: [phone] MESSAGE: DR. SAINZ. 3017B/NAZANIN, RECENT TROP 10.21. ANA MARIA [id number]. RETURNING FROM [facility] NOW.
--- NOTE | 2019-05-24 18:22 | NUR ---
Problems reprioritized. Patient report given, questions answered & plan of care reviewed with Lore orozco.
--- NOTE | 2019-05-24 18:23 | NUR ---
Patient in room PCU 3017. I have received report from Cami MARTÍNEZ and had the opportunity to ask questions and assume patient care.
[2019-05-24] MEDS ORDERED: non-formulary drug (Budesonide/Formoterol Fumarate (Symbicort 160-4.5 Mcg Inhaler) 2 PUFFS INH SCH (20:00)
[2019-05-24] MEDS: sotalol 80mg tablet PO SCH (20:09)
[2019-05-24] MEDS: ipratropium/albuterol 3ml nebule NEB SCH (20:28)
[2019-05-24] MEDS: budesonide 0.5mg/2ml UD nebule IH SCH (20:28)
[2019-05-24] MEDS ORDERED: traZODone 150mg tablet PO SCH (21:00)
[2019-05-24] MEDS ORDERED: temazepam 15mg capsule PO PRN (21:00)
--- NOTE | 2019-05-24 21:34 | NUR ---
flu shot not yet available but if it is before DC he would like it
[2019-05-25] MEDS: normal saline 1000ml 1,000 ML IV SCH (01:07)
[2019-05-25 02:00] VITALS: BP 123/75
[2019-05-25] MEDS: ipratropium/albuterol 3ml nebule NEB SCH ×2 (02:42→07:22)
--- NOTE | 2019-05-25 04:59 | NUR ---
groin site tender to palpation this am. no signs of bleeding noted. pt has been resting through the night.
[2019-05-25 06:02] LABS: BASOPHILS # (AUTO) 0.1 X10'3 (0-0.2); BASOPHILS % (AUTO) 1.2 % (0-1); EOSINOPHILS # (AUTO) 0.2 X10'3 (0-0.9); EOSINOPHILS % (AUTO) 1.9 % (0-6); HEMATOCRIT 37.2 % (42.0-52.0); HEMOGLOBIN 12.5 g/dl (14.0-17.9); LYMPHOCYTES # (AUTO) 2.1 X10'3 (1.1-4.8); LYMPHOCYTES % (AUTO) 19.7 % (21-51); MEAN CORPUSCULAR HEMOGLOBIN 30.2 PG (27.0-31.0); MEAN CORPUSCULAR HGB CONC 33.7 g/dL (33.0-36.5); MEAN CORPUSCULAR VOLUME 89.4 FL (78-98); MEAN PLATELET VOLUME 6.9 FL (7.4-10.4); MONOCYTES # (AUTO) 1.4 X10'3 (0-0.9); NEUTROPHILS # (AUTO) 6.7 X10'3 (1.8-7.7); NEUTROPHILS % (AUTO) 64.2 % (42-75); PLATELET COUNT 271 X10'3 (140-440); RED BLOOD COUNT 4.16 X10'6 (4.70-6.10); RED CELL DISTRIBUTION WIDTH 14.8 % (11.5-14.5); WHITE BLOOD COUNT 10.4 X10'3 (4.5-11.0)
--- NOTE | 2019-05-25 06:04 | NUR ---
Problems reprioritized. Patient report given, questions answered & plan of care reviewed with Cami MARTÍNEZ.
--- NOTE | 2019-05-25 06:17 | NUR ---
Patient in room PCU 3017. I have received report from gayla MARTÍNEZ and had the opportunity to ask questions and assume patient care.
[2019-05-25 06:18] LABS: ALANINE AMINOTRANSFERASE 34 U/L (12-78); ALBUMIN 2.5 G/DL (3.4-5.0); ALBUMIN/GLOBULIN RATIO 0.9 (1.1-1.5); ALKALINE PHOSPHATASE 109 IU/L (46-116); ANION GAP 7 (8-16); ASPARTATE AMINO TRANSFERASE 26 U/L (10-37); BILIRUBIN,TOTAL 0.5 MG/DL (0.1-1.0); BLOOD UREA NITROGEN 24 MG/DL (7-18); BUN/CREATININE RATIO 23.3 (5.4-32.0); CALCIUM 8.2 MG/DL (8.5-10.1); CHLORIDE 109 MMOL/L (99-107); CHOL/HDL RATIO 3.3 (0.00-4.99); CHOLESTEROL 147 MG/DL (0-200); CREATININE 1.03 MG/DL (0.60-1.10); GLUCOSE 79 MG/DL (70-104); HDL CHOLESTEROL 44 MG/DL (35-60); LDL CHOLESTEROL 86 MG/DL (50-100); MAGNESIUM 1.7 MG/DL (1.5-2.4); PHOSPHORUS 3.7 MG/DL (2.3-4.5); POTASSIUM 4.1 MMOL/L (3.5-5.1); SODIUM 141 MMOL/L (135-145); TOTAL CARBON DIOXIDE 25.4 MMOL/L (24-32); TOTAL PROTEIN 5.2 G/DL (6.4-8.2); TRIGLYCERIDES 109 MG/DL (20-135); eGFR 71 ML/MIN
[2019-05-25 07:00] VITALS: BP 139/82
[2019-05-25] MEDS: budesonide 0.5mg/2ml UD nebule IH SCH (07:22)
[2019-05-25] MEDS: atorvastatin 20mg tablet PO SCH (07:52)
[2019-05-25] MEDS: sotalol 80mg tablet PO SCH (07:52)
[2019-05-25] MEDS ORDERED: pantoprazole 40mg Tablet.DR PO SCH (08:00)
[2019-05-25] MEDS: K and/or MAG REPLACEMENT MC SCH (08:00)
[2019-05-25] MEDS ORDERED: lisinopril 2.5mg tablet PO SCH (08:00)
[2019-05-25] MEDS ORDERED: aspirin 81mg tab.chew PO SCH (08:30)
[2019-05-25 11:00] VITALS: BP 123/81
[2019-05-25] MEDS ORDERED: ASPI-1265 PO (11:40)
[2019-05-25] MEDS ORDERED: SOTA80TA73 PO (11:40)
--- NOTE | 2019-05-25 12:30 | NUR ---
Patient discharged. IVs removed cannula intact Addendum: 05/25/19 at 1340 by Cami Atkinson RN Tele box removed and returned. Discharge instructions given to patient. new prescription called into [facility]. all belongings were gathered and taken with patient
[2019-06-19] MEDS ORDERED: ATOR-2 PO (15:44)
== END 2019-05-25 12:30 | disposition home or self-care (01) | DRG 280 ==
LOC: ER 09:03 → PCU 3S 12:16
PROVIDERS: ADMIT Family Medicine; ATTEND Family Medicine
PROC: 4A023N7 Measurement of Cardiac Sampling and Pressure, Left Heart, Percutaneous Approach (ICD-10-PCS; principal; 2019-05-24)
PROC: B2111ZZ Fluoroscopy of Multiple Coronary Arteries using Low Osmolar Contrast (ICD-10-PCS; 2019-05-24)
PROC: B2151ZZ Fluoroscopy of Left Heart using Low Osmolar Contrast (ICD-10-PCS; 2019-05-24)
PROC: B31P1ZZ Fluoroscopy of Thoraco-Abdominal Aorta using Low Osmolar Contrast (ICD-10-PCS; 2019-05-24)
DX: I21.4 Non-ST elevation (NSTEMI) myocardial infarction (principal); J18.1 Lobar pneumonia, unspecified organism; I47.1 Supraventricular tachycardia; N39.0 Urinary tract infection, site not specified; J44.1 Chronic obstructive pulmonary disease with (acute) exacerbation; E78.5 Hyperlipidemia, unspecified; I10 Essential (primary) hypertension; E78.00 Pure hypercholesterolemia, unspecified; I71.4 Abdominal aortic aneurysm, without rupture; F32.9 Major depressive disorder, single episode, unspecified; K21.9 Gastro-esophageal reflux disease without esophagitis; Z79.899 Other long term (current) drug therapy; Z82.3 Family history of stroke; Z87.891 Personal history of nicotine dependence; Z99.81 Dependence on supplemental oxygen; Z79.82 Long term (current) use of aspirin
CPT/HCPCS: 36415; 71045; 75625; 80053; 80061; 81001; 83036; 83735; 83880; 84100; 84484; 85025; 85347; 85610; 85730; 87081; 87088; 93005; 93308; 93458; 94640; 94760; 96365; 96375; 99152; 99285; A4620; A6258; C1760; C1769; C1894; G0378; J1644; J2001; J2060; J2250; J3010; J3246; J3490; J7030; J7626; Q9967

== ENCOUNTER 2019-07-09 19:40 | Emergency (ER) | payer BC ==
[~2019-07-09] VITALS: Ht 172.7 cm; Wt 59.5 kg
[~2019-07-09 19:40] MED LIST changes: +ASPI-1265 PO; +ATOR-2 PO; -ATOR20TA66 PO; -CARCD120C PO; -LEVO750T46 PO; +SOTA80TA73 PO
--- NOTE | 2019-07-09 20:05 | NUR ---
called and wants to know if pt is staying or going home - advised her that we are not sure yet as pt has only been here 20 mins. Advised her that we can call her when we have that information. Her name is Holleytree Castillo and she can be reached at [phone]. She doesn't drive at night but said she can call an Uber for him if he gets discharged.
[2019-07-09] MEDS ORDERED: methylPREDNISolone sod succ 125mg/2ml vial IV ONE (20:10)
[2019-07-09] MEDS ORDERED: DOXYCYCLINE 100MG CAPSULE PO STA (20:48)
[2019-07-09] MEDS ORDERED: PRED20TA PO (20:50)
[2019-07-09] MEDS ORDERED: DOXY100C43 PO (20:50)
[2019-07-09 21:05] VITALS: BP 132/77
== END 2019-07-09 21:05 | disposition home or self-care (01) ==
LOC: ER 19:40
DX: J44.9 Chronic obstructive pulmonary disease, unspecified (principal); I10 Essential (primary) hypertension; E78.00 Pure hypercholesterolemia, unspecified; Z79.82 Long term (current) use of aspirin; Z79.899 Other long term (current) drug therapy
CPT/HCPCS: 71045; 93005; 96374; 99283; J2930; 96372

== ENCOUNTER 2019-08-19 08:45 | Outpatient (CLI) | payer OTHER ==
[~2019-08-19] VITALS: Ht 172.7 cm; Wt 59.0 kg
[~2019-08-19 08:45] MED LIST changes: +OMEP-297 PO; -OMEP20CA11 PO
[2019-08-19] MEDS ORDERED: albuterol 2.5 MG/3 ML nebule NEB ONE (09:10)
== END 2019-08-19 23:59 | disposition home or self-care (01) ==
LOC: RT 08:45
PROVIDERS: ATTEND Orthopaedic Surgery
DX: J44.9 Chronic obstructive pulmonary disease, unspecified (principal); F17.210 Nicotine dependence, cigarettes, uncomplicated
CPT/HCPCS: 71046; 94060; 94729; 94760

== ENCOUNTER 2019-10-12 04:46 | Outpatient (CLI) | payer BC ==
[~2019-10-12 04:46] MED LIST changes: +LEVO750T21 PO; +METO5TAB98 PO; +MULT-1141 PO; -OMEP-297 PO; +OMEP20CA15 PO; +PRED10TA23 PO
== END 2019-10-12 23:59 | disposition home or self-care (01) ==
LOC: RT 04:46
PROVIDERS: ATTEND Internal Medicine Critical Care Medicine
DX: J44.9 Chronic obstructive pulmonary disease, unspecified (principal)
CPT/HCPCS: 94618

== ENCOUNTER 2019-10-24 04:37 | Emergency (ER) | payer BC ==
[~2019-10-24] VITALS: Ht 172.7 cm; Wt 61.4 kg
[2019-10-24] MEDS ORDERED: methylPREDNISolone sod succ 125mg/2ml vial IV ONE (05:05)
[2019-10-24] MEDS ORDERED: ipratropium/albuterol 3ml nebule NEB ONE (05:05)
[2019-10-24 05:31] LABS: BASOPHILS # (AUTO) 0.1 X10'3 (0-0.2); BASOPHILS % (AUTO) 0.4 % (0-1); EOSINOPHILS # (AUTO) 0.2 X10'3 (0-0.9); EOSINOPHILS % (AUTO) 1.3 % (0-6); HEMATOCRIT 44.7 % (42.0-52.0); HEMOGLOBIN 14.8 g/dl (14.0-17.9); LYMPHOCYTES # (AUTO) 2.4 X10'3 (1.1-4.8); LYMPHOCYTES % (AUTO) 17.3 % (21-51); MEAN CORPUSCULAR HEMOGLOBIN 29.8 PG (27.0-31.0); MEAN CORPUSCULAR HGB CONC 33.2 g/dL (33.0-36.5); MEAN CORPUSCULAR VOLUME 89.8 FL (78-98); MEAN PLATELET VOLUME 7.2 FL (7.4-10.4); MONOCYTES # (AUTO) 1.6 X10'3 (0-0.9); MONOCYTES % (AUTO) 11.1 % (2-12); NEUTROPHILS # (AUTO) 9.9 X10'3 (1.8-7.7); NEUTROPHILS % (AUTO) 69.9 % (42-75); PLATELET COUNT 231 X10'3 (140-440); RED BLOOD COUNT 4.97 X10'6 (4.70-6.10); RED CELL DISTRIBUTION WIDTH 14.9 % (11.5-14.5); WHITE BLOOD COUNT 14.1 X10'3 (4.5-11.0)
[2019-10-24 05:48] LABS: ALANINE AMINOTRANSFERASE 31 U/L (12-78); ALBUMIN 3.6 G/DL (3.4-5.0); ALBUMIN/GLOBULIN RATIO 1.1 (1.1-1.5); ALKALINE PHOSPHATASE 109 IU/L (46-116); ANION GAP 9 (8-16); ASPARTATE AMINO TRANSFERASE 21 U/L (10-37); BILIRUBIN,TOTAL 0.6 MG/DL (0.1-1.0); BLOOD UREA NITROGEN 32 MG/DL (7-18); BUN/CREATININE RATIO 28.6 (5.4-32.0); CALCIUM 9.4 MG/DL (8.5-10.1); CHLORIDE 103 MMOL/L (99-107); CREATININE 1.12 MG/DL (0.60-1.10); GLUCOSE 98 MG/DL (70-104); POTASSIUM 4.6 MMOL/L (3.5-5.1); SODIUM 139 MMOL/L (135-145); TOTAL CARBON DIOXIDE 27.2 MMOL/L (24-32); TOTAL PROTEIN 6.8 G/DL (6.4-8.2); eGFR 64 ML/MIN
[2019-10-24 05:57] LABS: CLARITY,URINE CLOUDY (Clear); COLOR,URINE BROWN (Yellow); GLUCOSE, URINE NEGATIVE (Neg); KETONES,URINE TRACE mg/dl (Neg); LEUKOCYTE ESTERASE ,URINE TRACE (Neg); OCCULT BLOOD,URINE LARGE (Neg); PH,URINE 6.5 (4.8-8.0); PROTEIN,URINE >=300 mg/dl (Neg)
[2019-10-24 06:03] LABS: UA COLLECTION TYPE URINAL
[2019-10-24 06:05] LABS: NITRITES, URINE NEGATIVE (Neg)
[2019-10-24 06:10] LABS: BACTERIA,URINE NONE SEEN /HPF (Neg); MUCUS STRANDS NONE SEEN /LPF (Neg); RBC,URINE TNTC /HPF (0-2); SQUAMOUS EPITHELIAL CELL,UR NONE SEEN /LPF (FEW)
[2019-10-24 06:49] VITALS: BP 129/71
[2019-10-24] MEDS ORDERED: albuterol 2.5 MG/3 ML nebule NEB ONE (07:55)
[2019-10-24] MEDS ORDERED: CefTRIAXone/D5W-Rocephin 1gm 50 ML IV ONE (07:55)
[2019-10-24] MEDS ORDERED: PRED20TA PO (07:55)
--- NOTE | 2019-10-24 08:03 | NUR ---
CALLED PHARMACY STATED MAKING ABX AND WILL BRING DOWN ONCE AVAILABLE.
== END 2019-10-24 09:12 | disposition home or self-care (01) ==
LOC: ER 04:38
DX: J44.1 Chronic obstructive pulmonary disease with (acute) exacerbation (principal); R31.9 Hematuria, unspecified; I71.4 Abdominal aortic aneurysm, without rupture; N32.89 Other specified disorders of bladder; R10.30 Lower abdominal pain, unspecified; E78.00 Pure hypercholesterolemia, unspecified; I27.20 Pulmonary hypertension, unspecified; Z79.82 Long term (current) use of aspirin; Z79.899 Other long term (current) drug therapy; Z79.2 Long term (current) use of antibiotics; Z99.81 Dependence on supplemental oxygen
CPT/HCPCS: 36415; 71045; 74176; 80053; 81001; 83880; 84145; 84484; 85025; 87088; 93005; 94640; 96365; 96375; 99285; J0696; J2930; 94760

== ENCOUNTER 2020-04-15 09:13 | Outpatient (CLI) | payer OTHER ==
[~2020-04-15 09:13] MED LIST changes: -ASPI-1265 PO; +ASPI-611 PO; -ATOR-2 PO; +ATOR40TA PO; +DILT30TA5 PO; -LEVO750T21 PO; +NITR0.4T51 SL; -PRED10TA23 PO; +PRED5TAB PO; +SOTA80TA46 PO; -SOTA80TA73 PO
== END 2020-04-15 23:59 | disposition home or self-care (01) ==
LOC: CARD DIAG 09:13
PROVIDERS: ATTEND Orthopaedic Surgery
DX: I25.10 Atherosclerotic heart disease of native coronary artery without angina pectoris (principal)
CPT/HCPCS: 93306

== ENCOUNTER 2020-05-03 19:25 | Emergency (ER) | payer OTHER, BC ==
[~2020-05-03] VITALS: Ht 167.6 cm; Wt 59.1 kg
[~2020-05-03 19:25] MED LIST changes: +ATOR20TA66 PO; -ATOR40TA PO; -DILT30TA5 PO; +METO25TA6 PO
[2020-05-03] MEDS: morphine 4 MG/ML inj SYRINge IV PRN ×2 (21:22→22:37)
--- NOTE | 2020-05-03 21:30 | NUR ---
jonah Castillo: [phone] (pt's ) please call with results.
[2020-05-03 21:32] LABS: BASOPHILS # (AUTO) 0.1 X10'3 (0-0.2); BASOPHILS % (AUTO) 0.3 % (0-1); EOSINOPHILS # (AUTO) 0.3 X10'3 (0-0.9); EOSINOPHILS % (AUTO) 1.4 % (0-6); HEMATOCRIT 41.4 % (42.0-52.0); HEMOGLOBIN 13.4 g/dl (14.0-17.9); LYMPHOCYTES # (AUTO) 2.3 X10'3 (1.1-4.8); LYMPHOCYTES % (AUTO) 12.4 % (21-51); MEAN CORPUSCULAR HEMOGLOBIN 29.8 PG (27.0-31.0); MEAN CORPUSCULAR HGB CONC 32.4 g/dL (33.0-36.5); MEAN CORPUSCULAR VOLUME 92.1 FL (78-98); MEAN PLATELET VOLUME 7.3 FL (7.4-10.4); MONOCYTES % (AUTO) 10.8 % (2-12); NEUTROPHILS # (AUTO) 13.9 X10'3 (1.8-7.7); NEUTROPHILS % (AUTO) 75.1 % (42-75); PLATELET COUNT 206 X10'3 (140-440); RED CELL DISTRIBUTION WIDTH 14.2 % (11.5-14.5); WHITE BLOOD COUNT 18.5 X10'3 (4.5-11.0)
[2020-05-03 21:36] LABS: ALANINE AMINOTRANSFERASE 38 U/L (12-78); ALBUMIN 3.2 G/DL (3.4-5.0); ALBUMIN/GLOBULIN RATIO 1.1 (1.1-1.5); ALKALINE PHOSPHATASE 115 IU/L (46-116); ANION GAP 6 (8-16); ASPARTATE AMINO TRANSFERASE 16 U/L (10-37); BILIRUBIN,TOTAL 0.4 MG/DL (0.1-1.0); BLOOD UREA NITROGEN 23 MG/DL (7-18); BUN/CREATININE RATIO 23.7 (5.4-32.0); CALCIUM 8.8 MG/DL (8.5-10.1); CHLORIDE 105 MMOL/L (99-107); CREATININE 0.97 MG/DL (0.60-1.10); GLUCOSE 132 MG/DL (70-104); POTASSIUM 4.4 MMOL/L (3.5-5.1); SODIUM 141 MMOL/L (135-145); TOTAL CARBON DIOXIDE 30.4 MMOL/L (24-32); TOTAL PROTEIN 6.2 G/DL (6.4-8.2); eGFR 76 ML/MIN
[2020-05-03 21:41] LABS: CLARITY,URINE SLIGHTLY CLOUDY (Clear); COLOR,URINE YELLOW (Yellow); GLUCOSE, URINE NEGATIVE (Neg); KETONES,URINE NEGATIVE (Neg); LEUKOCYTE ESTERASE ,URINE MODERATE (Neg); NITRITES, URINE NEGATIVE (Neg); OCCULT BLOOD,URINE SMALL (Neg); PROTEIN,URINE NEGATIVE (Neg); UROBILINOGEN,URINE 0.2 E.U/dL (0.2-1.0)
[2020-05-03 22:09] LABS: UA COLLECTION TYPE URINAL
[2020-05-03 22:10] LABS: RBC,URINE 0-2 /HPF (0-2); WBC,URINE 30-50 /HPF (0-4)
[2020-05-03 22:11] LABS: BACTERIA,URINE 1+ /HPF (Neg); SQUAMOUS EPITHELIAL CELL,UR FEW /LPF (FEW)
[2020-05-03] MEDS ORDERED: CefTRIAXone 2gm/D5W 50ml 50 ML IV ONE (22:15)
[2020-05-03] MEDS ORDERED: normal saline 1000ML IV soln IVB ONE (22:15)
[2020-05-03] MEDS ORDERED: CEPH-572 PO (22:23)
[2020-05-03] MEDS ORDERED: HYDR-4353 PO (22:23)
[2020-05-03] MEDS ORDERED: HYDROcodone/acetaminophen 10/325mg tab PO ONE (22:25)
[2020-05-03] MEDS ORDERED: ipratropium/albuterol 3ml nebule NEB ONE (23:00)
[2020-05-03] MEDS ORDERED: LORazepam 2 mg/ml vial IV ONE (23:00)
--- NOTE | 2020-05-03 23:00 | NUR ---
Patient states pain is better with medication, still feeling SOB, patient BP 230/128 HR 125 O2 88% on 3L. Provider aware, SVN tx ordered as well as Ativan, and CTA of the chest.
[2020-05-03] MEDS ORDERED: iohexol 350MG/ML 100ml bottle IV ONE (23:06)
--- NOTE | 2020-05-03 23:44 | NUR ---
Patient resting comfortably, hr 111, BP 142/80 99% on 3L. Patient out to CT at this time.
[2020-05-04 01:40] VITALS: BP 154/80
== END 2020-05-04 01:43 | disposition home or self-care (01) ==
LOC: ER 19:25
DX: N39.0 Urinary tract infection, site not specified (principal); M54.89 Other dorsalgia; D72.829 Elevated white blood cell count, unspecified; R07.89 Other chest pain; R06.02 Shortness of breath; I48.91 Unspecified atrial fibrillation; I25.10 Atherosclerotic heart disease of native coronary artery without angina pectoris; E78.00 Pure hypercholesterolemia, unspecified; I10 Essential (primary) hypertension; J45.909 Unspecified asthma, uncomplicated; J44.9 Chronic obstructive pulmonary disease, unspecified; Z79.82 Long term (current) use of aspirin; Z79.899 Other long term (current) drug therapy
CPT/HCPCS: 36415; 71045; 71275; 80053; 81001; 85025; 87088; 93005; 94640; 96365; 96375; 96376; 99285; J0696; J2060; J2270; J7030; Q9967; 94760

== ENCOUNTER 2020-05-18 19:38 | Emergency (ER) | payer OTHER, BC ==
[~2020-05-18] VITALS: Ht 172.7 cm; Wt 59.1 kg
[~2020-05-18 19:38] MED LIST changes: +CEPH-572 PO; +HYDR-4353 PO
[2020-05-18] MEDS ORDERED: LISI-600 PO (19:57)
[2020-05-18] MEDS ORDERED: ipratropium/albuterol 3ml nebule NEB ONE (20:10)
[2020-05-18] MEDS ORDERED: HYDROcodone/acetaminophen 5mg/325mg tablet PO ONE (20:10)
[2020-05-18] MEDS ORDERED: methylPREDNISolone sod succ 125mg/2ml vial IV ONE (20:10)
[2020-05-18] MEDS ORDERED: diazepam 5mg tablet PO ONE (20:10)
[2020-05-18 20:20] LABS: BASOPHILS # (AUTO) 0.1 X10'3 (0-0.2); BASOPHILS % (AUTO) 0.8 % (0-1); EOSINOPHILS # (AUTO) 0.1 X10'3 (0-0.9); EOSINOPHILS % (AUTO) 0.9 % (0-6); HEMATOCRIT 42.7 % (42.0-52.0); HEMOGLOBIN 13.8 g/dl (14.0-17.9); LYMPHOCYTES # (AUTO) 2.4 X10'3 (1.1-4.8); MEAN CORPUSCULAR HEMOGLOBIN 29.5 PG (27.0-31.0); MEAN CORPUSCULAR HGB CONC 32.2 g/dL (33.0-36.5); MEAN CORPUSCULAR VOLUME 91.5 FL (78-98); MEAN PLATELET VOLUME 7.5 FL (7.4-10.4); MONOCYTES # (AUTO) 1.5 X10'3 (0-0.9); MONOCYTES % (AUTO) 11.8 % (2-12); NEUTROPHILS # (AUTO) 8.4 X10'3 (1.8-7.7); NEUTROPHILS % (AUTO) 67.5 % (42-75); PLATELET COUNT 361 X10'3 (140-440); RED BLOOD COUNT 4.67 X10'6 (4.70-6.10); RED CELL DISTRIBUTION WIDTH 13.6 % (11.5-14.5); WHITE BLOOD COUNT 12.4 X10'3 (4.5-11.0)
[2020-05-18 20:22] LABS: ALANINE AMINOTRANSFERASE 29 U/L (12-78); ALBUMIN 3.7 G/DL (3.4-5.0); ALBUMIN/GLOBULIN RATIO 1.2 (1.1-1.5); ALKALINE PHOSPHATASE 152 IU/L (46-116); ANION GAP 3 (8-16); ASPARTATE AMINO TRANSFERASE 25 U/L (10-37); BILIRUBIN,TOTAL 0.4 MG/DL (0.1-1.0); BLOOD UREA NITROGEN 17 MG/DL (7-18); BUN/CREATININE RATIO 21.8 (5.4-32.0); CALCIUM 9.4 MG/DL (8.5-10.1); CHLORIDE 101 MMOL/L (99-107); CREATININE 0.78 MG/DL (0.60-1.10); GLUCOSE 119 MG/DL (70-104); POTASSIUM 4.7 MMOL/L (3.5-5.1); SODIUM 138 MMOL/L (135-145); TOTAL CARBON DIOXIDE 33.8 MMOL/L (24-32); TOTAL PROTEIN 6.7 G/DL (6.4-8.2); eGFR > 90 ML/MIN
--- NOTE | 2020-05-18 20:31 | NUR ---
TALKED EXTENSIVELY WITH , WITH PT PERMISSION, WITH PLAN OF CARE AND PT HX. AGREEABLE TO PLAN
[2020-05-18] MEDS ORDERED: HYDR-3965 PO (20:54)
[2020-05-18 21:47] VITALS: BP 133/93
== END 2020-05-18 21:49 | disposition home or self-care (01) ==
LOC: ER 19:38
DX: J44.1 Chronic obstructive pulmonary disease with (acute) exacerbation (principal); M54.89 Other dorsalgia; R06.02 Shortness of breath; I48.91 Unspecified atrial fibrillation; I25.10 Atherosclerotic heart disease of native coronary artery without angina pectoris; E78.00 Pure hypercholesterolemia, unspecified; I10 Essential (primary) hypertension; Z79.82 Long term (current) use of aspirin; Z79.899 Other long term (current) drug therapy
CPT/HCPCS: 36415; 71045; 80053; 83880; 85025; 93005; 94640; 96374; 99285; J2930; 94760

== ENCOUNTER 2020-12-06 06:19 | Day surgery (SDC) | payer BC, OTHER ==
[~2020-12-06] VITALS: Ht 170.2 cm; Wt 64.7 kg
[2020-12-06] VITALS (9 sets, daily range): BP systolic 110–147; BP diastolic 73–108
[~2020-12-06 06:19] MED LIST changes: +ALB0.5UD IH; +ATOR-2 PO; -ATOR20TA66 PO; +CEFD300C3 PO; -CEPH-572 PO; +DILT180C66 PO; -HYDR-4353 PO; +LACT1CAP26 PO; -LISI2.5T2 PO; +LISI20TA28 PO; +LOP25T PO; -METO25TA6 PO; -NITR0.4T51 SL; +PRED10TA23 PO; -SOTA80TA46 PO; -TIOT18CA3 IH; +TIOT4MIS5 INH; +TRAZ-256 PO; -TRAZ150T78 PO; +iohexol 350MG/ML 100ml bottle IV ONE
[2020-12-06] MEDS ORDERED: IBUP-860 PO (06:53)
[2020-12-06] MEDS ORDERED: HYDR-3972 PO (06:53)
[2020-12-06] MEDS ORDERED: DILT180C89 PO (06:53)
[2020-12-06] MEDS ORDERED: ACET-2006 PO (06:53)
[2020-12-06] MEDS ORDERED: normal saline 1000ml 1,000 ML IV SCH ×2 (06:55→13:15)
--- NOTE | 2020-12-06 08:25 | NUR ---
Sandy MARTÍNEZ at bed side, pt procedure cancelled. To be rescheduled.
[2020-12-06 09:50] LABS: BASOPHILS % (AUTO) 0.2 % (0-1); EOSINOPHILS # (AUTO) 0.2 X10'3 (0-0.9); EOSINOPHILS % (AUTO) 0.9 % (0-6); HEMATOCRIT 38.8 % (42.0-52.0); HEMOGLOBIN 12.4 g/dl (14.0-17.9); LYMPHOCYTES # (AUTO) 2.1 X10'3 (1.1-4.8); LYMPHOCYTES % (AUTO) 10.9 % (21-51); MEAN CORPUSCULAR HEMOGLOBIN 28.1 PG (27.0-31.0); MEAN CORPUSCULAR VOLUME 87.8 FL (78-98); MEAN PLATELET VOLUME 6.7 FL (7.4-10.4); MONOCYTES # (AUTO) 1.4 X10'3 (0-0.9); MONOCYTES % (AUTO) 7.1 % (2-12); NEUTROPHILS # (AUTO) 15.9 X10'3 (1.8-7.7); NEUTROPHILS % (AUTO) 80.9 % (42-75); PLATELET COUNT 325 X10'3 (140-440); RED BLOOD COUNT 4.41 X10'6 (4.70-6.10); RED CELL DISTRIBUTION WIDTH 15.1 % (11.5-14.5); WHITE BLOOD COUNT 19.6 X10'3 (4.5-11.0)
[2020-12-06 10:29] LABS: PLATELET ESTIMATE NORMAL
[2020-12-06 10:30] LABS: BURR CELLS FEW; ELLIPTOCYTES 2+; SCHISTOCYTES FEW
[2020-12-06] MEDS ORDERED: LIDOcaine 1%/PF 5ML 10 MG/ML VIAL ONE ×2 (10:36→11:51)
[2020-12-06] MEDS ORDERED: iohexol 300 MG/1 ML 50ml polymer ONE (10:36)
[2020-12-06] MEDS ORDERED: fentaNYL/PF 50MCG/1 ML 2ML syringe ONE ×2 (11:25→11:55)
[2020-12-06] MEDS ORDERED: midazolam 1 mg/ML 2ml injection ONE (11:25)
[2020-12-06] MEDS ORDERED: diphenhydrAMINE 50 mg/ml inj ONE (11:25)
[2020-12-06] MEDS ORDERED: HYDROcodone/acetaminophen 5mg/325mg tablet PO PRN (13:15)
[2020-12-06] MEDS ORDERED: morphine 4 MG/ML inj SYRINge IV PRN (13:15)
[2020-12-06] MEDS ORDERED: cefazolin/dext.iso 2gm/100ml 100 ML IV STA (13:40)
--- NOTE | 2020-12-06 14:10 | NUR ---
Pt states pain 8/10 from posterior lower back. Pain medication administered as ordered.
--- NOTE | 2020-12-06 14:45 | NUR ---
Contacted Taz KINGSLEY, pt states pain is 10/10 from his back and is "not able to go home like this". New orders given, pain medication administered as ordered. Empathized with patient about severity of pain and educated pt on new order from MD. Pt is in agreement. Will continue to monitor. VS stable as charted.
[2020-12-06] MEDS ORDERED: ketorolac trometh. 30mg/ml inj. IV ONE (15:10)
[2020-12-06] MEDS ORDERED: HYDROcodone/acetaminophen 10/325mg tab PO ONE ×2 (15:15→15:31)
[2020-12-06] MEDS ORDERED: ketorolac tromethamine 15mg/ml inj. IV ONE (15:20)
--- NOTE | 2020-12-06 15:45 | NUR ---
Pt states his pain "feels a bit better". 03/11. Able to get dressed and is sitting up in bed with feet dangling. Will continue to monitor.
== END 2020-12-06 16:00 | disposition home or self-care (01) ==
LOC: SSTAY O 06:19
PROVIDERS: ATTEND Radiology Vascular & Interventional Radiology
DX: M80.88XA Other osteoporosis with current pathological fracture, vertebra(e), initial encounter for fracture (principal); Y83.8 Other surgical procedures as the cause of abnormal reaction of the patient, or of later complication, without mention of misadventure at the time of the procedure; Z79.899 Other long term (current) drug therapy
CPT/HCPCS: 22513; 22515; 36415; 71275; 85025; 85610; 99152; 99153; J1200; J1885; J2250; J2270; J3010; J7030; Q9967; 85008